=== PATIENT | female | born 1980 | race Caucasian/White ===

== ENCOUNTER → 2022-01-27 08:16 | Outpatient (BNVA) | payer OTHER, SELFPAY | PROVIDERS: PCP Physician Assistant Medical; Visit Provider Surgery | DX: E66.01 Morbid (severe) obesity due to excess calories (principal) ==

== ENCOUNTER 2022-02-02 06:01 | Outpatient (REF) | payer OTHER, SELFPAY ==
--- NOTE | ~2022-02-02 | XR_ITS ---
EXAMINATION: XR CHEST CLINICAL INFORMATION: Morbid obesity. COMPARISON: None TECHNIQUE: 2 views of the chest were obtained. FINDINGS: No significant abnormality is noted involving the heart, lungs, mediastinum, bony thorax or soft tissues. XR/XR chest 2V IMPRESSION: Unremarkable examination.
--- NOTE | 2022-02-02 06:20 | ECG_ITS ---
Test Reason : E66.01 Blood Pressure : / mmHG Vent. Rate : 073 BPM Atrial Rate : 073 BPM P-R Int : 148 ms QRS Dur : 086 ms QT Int : 430 ms P-R-T Axes : -07 -23 012 degrees QTc Int : 473 ms Normal sinus rhythm Normal ECG No previous ECGs available Referred By: Dimitrios Neely Electronically Signed By:LUCIANA ATKINSON MD
[2022-02-02 06:21] LABS: MANUAL DIFF FLAG NO
[2022-02-02 07:27] LABS: Basophils Percent Auto 0.4 % (0-2); Eosinophils Absolute Auto 0.3 X10*3/uL (0.0-0.4); Eosinophils Percent Auto 4.1 % (0-4); Hematocrit 44.7 % (37.0-47.0); Hemoglobin 14.5 g/dl (12.0-16.0); Imm Gran Abs Auto 0.02 X10*3/uL (0.00-0.03); Imm Gran Pct Auto 0.3 % (0.0-0.4); Lymphocytes Absolute Auto 2.8 X10*3/uL (1.2-4.9); Lymphocytes Percent Auto 39.8 % (20-40); Mean Corpuscular HGB Conc 32.4 g/dl (31.0-35.0); Mean Corpuscular Hemoglobin 27.7 pg (27.0-33.0); Mean Corpuscular Volume 85.5 fL (80.0-98.0); Mean Platelet Volume 10.8 fL (9.4-12.3); Monocytes Absolute Auto 0.5 X10*3/uL (0.1-1.2); Monocytes Percent Auto 7.2 % (2-11); Neutrophils Absolute Auto 3.4 x10*3/uL (2.0-8.3); Neutrophils Percent Auto 48.2 % (45-73); Platelet Count 244 X10*3/uL (160-400); Red Blood Count 5.23 X10*6/uL (4.20-5.50); Red Cell Distribution Width 12.6 % (11.0-16.0); White Blood Count 7.1 X10*3/uL (4.8-10.8)
[2022-02-02 07:58] LABS: Estimated Average Glucose 100 mg/dL; Hemoglobin A1c % 5.1 %
[2022-02-02 08:09] LABS: Alanine Aminotransferase 31 U/L (0-31); Albumin Level 4.4 g/dL (3.5-5.0); Alkaline Phosphatase 69 U/L (39-117); Anion Gap 11 (12-20); Aspartate Amino Transferase 21 U/L (5-31); Bilirubin Total 0.6 mg/dL (0.0-1.0); Blood Urea Nitrogen 12 mg/dL (9-16); C Reactive Protein 0.21 mg/dL (< or = 0.50); Calcium 9.3 mg/dL (8.4-10.2); Carbon Dioxide 26 mmol/L (22-29); Chloride 106 mmol/L (96-108); Cholesterol 230 mg/dL; Estimated Glomerular Filt Rate > 60; Ferritin 106 ng/mL (10-250); Glucose Random 93 mg/dL (60-115); HDL Cholesterol 48 mg/dL; Insulin 14 uU/mL (2-29); Iron 129 mcg/dL (30-160); LDL Cholesterol Calculated 142 mg/dl; Percent Iron Saturation 45 % (15-50); Potassium 4.4 mmol/L (3.3-5.1); Sodium 139 mmol/L (135-145); TSH reflex Free T4 1.94 uIU/mL (0.32-4.0); Total Iron Binding Capacity 287 mcg/dL (228-428); Total Protein 7.1 g/dL (6.5-8.0); Triglycerides 203 mg/dL; Unsaturated Iron Binding 158 ug/dL; Vitamin D 25-OH Total 28.9 ng/mL (>30)
[2022-02-02 08:26] LABS: Folate 17.7 ng/mL (> or = 4.0); Vitamin B12 478 pg/mL (200-900)
[2022-02-05 13:09] LABS: Calcium (PTHI) 9.4 mg/dL (8.6-10.2); PTHI 64 pg/mL (16-77)
[2022-02-06 17:39] LABS: Zinc 77 mcg/dL (60-130)
[2022-02-07 15:44] LABS: Vitamin B1 9 nmol/L (8-30)
[2022-02-08 17:03] LABS: Vitamin A 53 mcg/dL (38-98)
== END 2022-02-02 06:02 | disposition home or self-care (01) ==
LOC: HO.XRAY 06:01
PROVIDERS: PCP Physician Assistant Medical; Visit Provider Surgery
DX: E66.01 Morbid (severe) obesity due to excess calories (principal); E78.5 Hyperlipidemia, unspecified; R73.03 Prediabetes
CPT/HCPCS: 36415; 71046; 80053; 80061; 82306; 82607; 82728; 82746; 83036; 83525; 83540; 83970; 84425; 84443; 84590; 84630; 85025; 86140; 93005

== ENCOUNTER → 2022-02-03 09:08 | Outpatient (BNVA) | payer OTHER, SELFPAY | PROVIDERS: PCP Physician Assistant Medical; Visit Provider Physician Assistant Surgical | DX: Z13.89 Encounter for screening for other disorder (principal) ==

== ENCOUNTER 2022-02-03 13:31 | Outpatient (REF) | payer OTHER, SELFPAY ==
[2022-02-03 15:21] LABS: H Pylori Breath Test Negative (Negative)
== END 2022-02-03 13:32 | disposition home or self-care (01) ==
LOC: HO.LNP 13:31
PROVIDERS: Visit Provider Surgery
DX: E66.01 Morbid (severe) obesity due to excess calories (principal); E78.5 Hyperlipidemia, unspecified; R73.03 Prediabetes
CPT/HCPCS: 83013

== ENCOUNTER → 2022-02-17 08:08 | Outpatient (BNVA) | payer OTHER, SELFPAY | PROVIDERS: PCP Physician Assistant Medical; Visit Provider Physician Assistant Surgical | DX: Z13.89 Encounter for screening for other disorder (principal) ==

== ENCOUNTER → 2022-02-20 08:15 | Outpatient (BNVA) | payer OTHER, SELFPAY | PROVIDERS: PCP Physician Assistant Medical; Visit Provider Surgery | DX: E66.01 Morbid (severe) obesity due to excess calories (principal) ==

== ENCOUNTER → 2022-02-23 09:45 | Outpatient (BNVA) | payer OTHER, SELFPAY | PROVIDERS: PCP Physician Assistant Medical; Visit Provider Dietitian, Registered | DX: E66.01 Morbid (severe) obesity due to excess calories (principal) | CPT/HCPCS: 97802 ==

== ENCOUNTER → 2022-02-28 12:30 | Outpatient (BNVA) | payer OTHER, SELFPAY | PROVIDERS: PCP Physician Assistant Medical; Visit Provider Counselor Mental Health | DX: F33.0 Major depressive disorder, recurrent, mild (principal); E66.01 Morbid (severe) obesity due to excess calories | CPT/HCPCS: 90791 ==

== ENCOUNTER → 2022-03-20 08:42 | Outpatient (BNVA) | payer OTHER, SELFPAY | PROVIDERS: PCP Physician Assistant Medical; Visit Provider Surgery | DX: Z13.89 Encounter for screening for other disorder (principal) ==

== ENCOUNTER 2022-03-23 08:04 | Outpatient (REF) | payer OTHER, SELFPAY ==
--- NOTE | ~2022-03-23 | FL_ITS ---
EXAMINATION: XR FLUOROSCOPY UPPER GI WITH AIR CLINICAL INFORMATION: Morbid obesity COMPARISON: None TECHNIQUE: Air-contrast upper GI examination FINDINGS: There is normal apposition of the vocal cords while saying E. There is normal elevation of the soft palate while saying candy. Patient swallowed thin and thick barium and half-inch diameter barium tablet without difficulty. No nasopharyngeal reflux or tracheal aspiration identified. There is normal esophageal motility without evidence of persistent stricture or ulcerations/erosions. No hiatal hernia was identified. No gastroesophageal reflux was elicited during the study including with water siphon test. The stomach demonstrated normal distensibility without evidence of abnormal mass or ulceration. There was no delay in gastric emptying. A duodenal diverticulum is seen off the third portion of the duodenum. FLUOROSCOPY TIME: 1.8 minutes DOSE AREA PRODUCT: 24.475 Gy-cm2 FL/FL upper GI w air IMPRESSION: Normal air-contrast upper GI examination. Duodenal diverticulum.
--- NOTE | ~2022-03-23 | US_ITS ---
EXAMINATION: US COMPLETE ABDOMEN WITH LIVER ELASTOGRAPHY CLINICAL INFORMATION: Morbid obesity. COMPARISON: None. TECHNIQUE: Real-time imaging of the abdominal viscera. Noninvasive ultrasound liver fibrosis assessment is performed using [employer] point quantification shear wave elastography (2D-SWE) with a C5-2 MHz transducer. Multiple elastography samples are obtained. FINDINGS: PANCREAS: Limited. The visualized pancreatic head and body are normal in appearance. The remainder of the pancreas is obscured from visualization by the overlying bowel gas. ABDOMINAL AORTA: The proximal, middle, and distal aortic segments are normal in caliber. INFERIOR VENA CAVA: Visualized portions are normal. LIVER: The liver demonstrates normal size, contour and increased echogenicity, with pericholecystic sparing. No focal lesion or intrahepatic biliary duct dilatation. The right lobe measures 17.5 cm in length. The left lobe measures 12.4 cm in length. Portal flow is towards the liver (hepatopetal). Shear wave liver elastography median stiffness is 1.78 m/s (reference: normal median stiffness is 1.3 m/s or less). IQR/median stiffness to assess sampling precision is 0.0 (reference: good quality data set is IQR/median stiffness of 0.15 or less). GALLBLADDER: Small layering gallstones are seen, without sludge, polyps, wall thickening or pericholecystic fluid. COMMON BILE DUCT: Normal in caliber measuring 0.4 cm in diameter. RIGHT KIDNEY: At the upper pole, a 2.1 cm in maximal diameter anechoic, simple cyst is seen.. No hydronephrosis. No renal calculi or focal parenchymal lesions. The kidney measures 11.9 cm in maximum dimension. LEFT KIDNEY: Normal. No hydronephrosis. No renal calculi or focal parenchymal lesions. The kidney measures 11.4 cm in maximum dimension. SPLEEN: Normal. The spleen measures 12.3 cm in maximum dimension. FREE FLUID: None. US/US abdomen comp w elastography IMPRESSION: 1. There is generalized increase in hepatic echotexture, consistent with fatty infiltration or hepatocellular disease. Please correlate clinically. Characteristic pericholecystic sparing favors fatty infiltration. No focal hepatic mass or intrahepatic biliary dilatation is seen. 2. Liver elastography: Measurements are suggestive of compensated advanced chronic liver disease but need further test for confirmation. 3. There is cholelithiasis, without cholecystitis or choledocholithiasis. 4. A benign, simple right renal cyst is seen, with no imaging follow-up is recommended. 5. Technically limited ultrasound examination of the pancreatic tail. REFERENCE: Society of Radiologists in Ultrasound Liver Stiffness Thresholds (2020): LIVER STIFFNESS THRESHOLDS: *Liver Stiffness equal or less than 1.3 m/s: High probability of being normal. *Liver Stiffness less than 1.7 m/s: In the absence of other known clinical signs, rules out compensated advanced chronic liver disease. *Liver Stiffness 1.7-2.1 m/s: Suggestive of compensated advanced chronic liver disease but need further test for confirmation. *Liver Stiffness over 2.1 m/s: Rules in compensated advanced chronic liver disease. *Liver Stiffness over 2.4 m/s: Suggestive of clinically significant portal hypertension. QUALITY OF DATA SET: *IQR/Median value equal or less than 0.15 implies a quality data set. *IQR/Median value over 0.15 implies a poor quality data set. SIGNIFICANT CHANGE FROM PRIOR EXAM: Significant change if liver stiffness measurement is 10% or greater from prior exam. OTHER CONSIDERATIONS: The stage of liver fibrosis may be overestimated in the setting of acute hepatitis, liver inflammation, elevated liver function tests, hepatic vascular congestion, obstructive cholestasis, non-fasting state, and infiltrative diseases such as amyloidosis and lymphoma. In some patients with NAFLD, the liver stiffness thresholds for compensated advanced chronic liver disease may be lower. In causes other than viral hepatitis and NAFLD, liver stiffness thresholds are not well established.
== END 2022-03-23 08:05 | disposition home or self-care (01) ==
LOC: HO.US 08:04
PROVIDERS: Visit Provider Surgery
DX: Z01.818 Encounter for other preprocedural examination (principal); E66.01 Morbid (severe) obesity due to excess calories; E78.5 Hyperlipidemia, unspecified; R73.03 Prediabetes; K21.9 Gastro-esophageal reflux disease without esophagitis
CPT/HCPCS: 74246; 76705; 76981

== ENCOUNTER → 2022-03-24 09:45 | Outpatient (BNVA) | payer OTHER, SELFPAY | PROVIDERS: PCP Physician Assistant Medical; Visit Provider Counselor Mental Health | DX: F33.0 Major depressive disorder, recurrent, mild (principal); E66.01 Morbid (severe) obesity due to excess calories | CPT/HCPCS: 90832 ==

== ENCOUNTER → 2022-04-03 10:15 | Outpatient (BNVA) | payer OTHER, SELFPAY | PROVIDERS: PCP Physician Assistant Medical; Visit Provider Counselor Mental Health | DX: F33.0 Major depressive disorder, recurrent, mild (principal); E66.01 Morbid (severe) obesity due to excess calories | CPT/HCPCS: 90834 ==

== ENCOUNTER → 2022-04-10 08:00 | Outpatient (BNVA) | payer OTHER, SELFPAY | PROVIDERS: PCP Physician Assistant Medical; Visit Provider Surgery | DX: Z13.89 Encounter for screening for other disorder (principal) ==

== ENCOUNTER → 2022-04-13 10:30 | Outpatient (BNVA) | payer OTHER, SELFPAY | PROVIDERS: PCP Physician Assistant Medical; Visit Provider Counselor Mental Health | DX: F33.0 Major depressive disorder, recurrent, mild (principal); E66.01 Morbid (severe) obesity due to excess calories | CPT/HCPCS: 90834 ==

== ENCOUNTER → 2022-04-21 08:21 | Outpatient (BNVA) | payer OTHER, SELFPAY | PROVIDERS: PCP Physician Assistant Medical; Visit Provider Surgery | DX: Z13.89 Encounter for screening for other disorder (principal) ==

== ENCOUNTER → 2022-04-24 12:58 | Outpatient (BNVA) | payer OTHER, SELFPAY | PROVIDERS: PCP Physician Assistant Medical; Visit Provider Surgery | DX: Z13.89 Encounter for screening for other disorder (principal) ==

== ENCOUNTER 2022-04-27 08:01 | Inpatient (IN) | payer OTHER, SELFPAY ==
[2022-04-21 08:19] LABS: MANUAL DIFF FLAG NO
[2022-04-21 08:55] LABS: Basophils Percent Auto 0.5 % (0-2); Eosinophils Absolute Auto 0.2 X10*3/uL (0.0-0.4); Eosinophils Percent Auto 3.8 % (0-4); Hematocrit 45.1 % (37.0-47.0); Hemoglobin 14.9 g/dl (12.0-16.0); Imm Gran Abs Auto 0.01 X10*3/uL (0.00-0.03); Imm Gran Pct Auto 0.2 % (0.0-0.4); Lymphocytes Absolute Auto 2.2 X10*3/uL (1.2-4.9); Lymphocytes Percent Auto 39.9 % (20-40); Mean Corpuscular Hemoglobin 28.2 pg (27.0-33.0); Mean Corpuscular Volume 85.3 fL (80.0-98.0); Mean Platelet Volume 10.7 fL (9.4-12.3); Monocytes Absolute Auto 0.5 X10*3/uL (0.1-1.2); Monocytes Percent Auto 8.2 % (2-11); Neutrophils Absolute Auto 2.7 x10*3/uL (2.0-8.3); Neutrophils Percent Auto 47.4 % (45-73); Platelet Count 209 X10*3/uL (160-400); Red Blood Count 5.29 X10*6/uL (4.20-5.50); Red Cell Distribution Width 12.8 % (11.0-16.0); White Blood Count 5.6 X10*3/uL (4.8-10.8)
[2022-04-21 09:00] LABS: Prothrombin Time 11.7 SEC (10.0-13.1)
[2022-04-21 09:03] LABS: Partial Thromboplastin Time 34.3 SEC (26.0-36.4)
[2022-04-21 09:07] LABS: Estimated Average Glucose 100 mg/dL; Hemoglobin A1c % 5.1 %
[2022-04-21 09:37] LABS: Alanine Aminotransferase 20 U/L (0-31); Albumin Level 4.5 g/dL (3.5-5.0); Alkaline Phosphatase 71 U/L (39-117); Anion Gap 11 (12-20); Aspartate Amino Transferase 21 U/L (5-31); Bilirubin Total 1.1 mg/dL (0.0-1.0); Blood Urea Nitrogen 11 mg/dL (9-16); C Reactive Protein 0.25 mg/dL (< or = 0.50); Calcium 9.3 mg/dL (8.4-10.2); Carbon Dioxide 29 mmol/L (22-29); Chloride 103 mmol/L (96-108); Cholesterol 195 mg/dL; Estimated Glomerular Filt Rate > 60; Glucose Random 87 mg/dL (60-115); HDL Cholesterol 47 mg/dL; LDL Cholesterol Calculated 126 mg/dl; Potassium 4.2 mmol/L (3.3-5.1); Sodium 139 mmol/L (135-145); Total Protein 7.2 g/dL (6.5-8.0); Triglycerides 111 mg/dL
[2022-04-21 09:52] LABS: Insulin 9 uU/mL (2-29); TSH reflex Free T4 1.12 uIU/mL (0.32-4.0)
--- NOTE | 2022-04-21 18:26 | P.HPSUR_ITS ---
Pre-Procedural Eval Section A Date of Service: 04/21/22 The patient is an INPATIENT: Yes The History & Physical has been completed within 30 days and I have reviewed it.: Yes Section B Chief Complaint: Morbid (severe) obesity due to excess calories Relevant Family History (Specify if Yes): No Relevant Social History: None Present Medications: None Medical History: No relevant PMH History of Previous Operations: No relevant previous surgery Allergies: Allergies Allergy/AdvReac Type Severity Reaction Status Date / Time Azithromycin Allergy Mild HIVES Uncoded 04/20/22 21:12 Review of Systems Sugical H&P ROS: Negative: Constitution, Cardiovascular, Respiratory, Neurological, Psychiatric, Hem-Onc, Allergic/Immunologic, Gastrointestinal, Genitourinary, Musculoskeletal, Integumentary, Endocrine and Eyes/Ears/ Nose/Throat Exam Surgical H&P Exam: Normal: HEENT, Normal: Heart, Normal: Lungs, Normal: Extremities, Normal: Abdomen, Normal: Skin and Normal: Neurological Plan Diagnosis/Plan: Unchanged I have reviewed the history and physical and performed a pertinent physical examination on my patient. No changes have occurred unless specified. Time Spent With Patient Time: Total time managing care of this patient today ____ minutes.
[2022-04-25 10:35] VITALS: BMI 44.6
--- NOTE | 2022-04-26 13:05 | P.CONAN_ITS ---
Documented by User: Jenna Whipple NP 04/26/22 13:06 HPI - Anesthesia Eval Consult details Narrative: 41yo F for Gastrectomy Sleeve egd ,possible diaphragmatic herina,poss ventral hernia,possible open PMFSH Active Problems Active Problems: All Active Problems (Updated 02/28/22 @ 13:39 by Pamela Noriega) Major depressive disorder, recurrent, mild (Acute) Vitamin D deficiency (Acute) PCOS (polycystic ovarian syndrome) (Acute) Hyperlipidemia (Acute) Prediabetes (Acute) Depression (Acute) Morbid obesity (Acute) Past Medical History Medical History Depression Hyperlipidemia Morbid obesity PCOS (polycystic ovarian syndrome) Prediabetes Family History Family History Mother Diabetes Heart problem Father No problems noted. Sister Stroke Sister No problems noted. Son No problems noted. Son No problems noted. 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 If so, by whom?: No Are you DNR?: No Advance Directives: No Advance Directives Information Provided: Yes (Info Mailed w/ pre-op instructio ns) Advance Directives on File: No Recently lost weight without trying: No How much weight loss: 24-33 pounds Eating poorly because of decreased appetite: No Nutrition screen score: 3 Nutrition Risks: No Nutritional Risk Patient : No FDLMP: 04/07/22 Poor oral hygiene: No Meds Allergies Allergy/AdvReac Type Severity Reaction Status Date / Time Penicillins Allergy Hives as Verified 04/25/22 10:31 infant Azithromycin Allergy Mild HIVES Uncoded 04/25/22 10:31 Home Medications Medication Instructions Recorded Confirmed Last Taken Type multivitamin 1 tab PO DAILY 01/19/22 04/27/22 04/26/22 History sertraline 25 mg tablet 25 mg PO DAILY 01/19/22 04/27/22 04/26/22 History Exam Exam Date and Time: April 26, 2022 1305 Height,Weight and Vital Signs: Height 5 ft 6 in Weight 125.418 kg Pertinent Lab Results Pertinent Lab Results: Laboratory Tests 04/21/22 04/21/22 04/21/22 08:15 08:18 08:18 WBC 5.6 RBC 5.29 Hgb 14.9 Hct 45.1 MCV 85.3 MCH 28.2 MCHC 33.0 RDW 12.8 Plt Count 209 MPV 10.7 Immature Gran % (Auto) 0.2 Neut % (Auto) 47.4 Lymph % (Auto) 39.9 [place] % (Auto) 8.2 Eos % (Auto) 3.8 Baso % (Auto) 0.5 Lymph # (Auto) 2.2 [place] # (Auto) 0.5 Eos # (Auto) 0.2 Baso # (Auto) 0.0 Abs Immat Gran (auto) 0.01 Absolute Neuts (auto) 2.7 Absolute Nucleated RBC 0.000 Nucleated RBC % (auto) 0.0 PT 11.7 INR 1.0 APTT 34.3 Sodium Potassium Chloride Carbon Dioxide Anion Gap BUN Creatinine Estim Creat Clear Calc Estimated GFR Random Glucose Estimat Average Glucose Hemoglobin A1c % Insulin Level Calcium Total Bilirubin AST ALT Alkaline Phosphatase C-Reactive Protein Total Protein Albumin Triglycerides Cholesterol LDL Cholesterol, Calc HDL Cholesterol TSH Blood Type B Positive Antibody Screen NEGATIVE 04/21/22 04/21/22 08:18 08:18 WBC RBC Hgb Hct MCV MCH MCHC RDW Plt Count MPV Immature Gran % (Auto) Neut % (Auto) Lymph % (Auto) [place] % (Auto) Eos % (Auto) Baso % (Auto) Lymph # (Auto) [place] # (Auto) Eos # (Auto) Baso # (Auto) Abs Immat Gran (auto) Absolute Neuts (auto) Absolute Nucleated RBC Nucleated RBC % (auto) PT INR APTT Sodium 139 Potassium 4.2 Chloride 103 Carbon Dioxide 29 Anion Gap 11 L BUN 11 Creatinine 0.77 Estim Creat Clear Calc TNP Estimated GFR > 60 Random Glucose 87 Estimat Average Glucose 100 Hemoglobin A1c % 5.1 Insulin Level 9 Calcium 9.3 Total Bilirubin 1.1 H AST 21 ALT 20 Alkaline Phosphatase 71 C-Reactive Protein 0.25 Total Protein 7.2 Albumin 4.5 Triglycerides 111 Cholesterol 195 LDL Cholesterol, Calc 126 HDL Cholesterol 47 TSH 1.12 Blood Type Antibody Screen Narrative Narrative: EKG 01/2022 Vent. Rate : 073 BPM ? ? Atrial Rate : 073 BPM ?? P-R Int : 148 ms? QRS Dur : 086 ms ? ? QT Int : 430 ms ? ? ? P-R-T Axes : - 012 degrees ?? QTc Int : 473 ms ? Normal sinus rhythm Normal ECG No previous ECGs available Assessment and Plan Assessment Anesthesia Assessment: Chart Reviewed Documented by User: Precious Kat MD 04/27/22 10:52 HPI - Anesthesia Eval Consult details Narrative: 41yo F for EGD, Laparoscopic Sleeve Gastrectomy, possible diaphragmatic hernia repair, possible ventral hernia repair, possible open PMFSH Active Problems Active Problems: All Active Problems (Updated 04/27/22 @ 09:30 by Precious Kat MD) Major depressive disorder, recurrent, mild (Acute) Vitamin D deficiency (Acute) PCOS (polycystic ovarian syndrome) (Acute) Hyperlipidemia (Acute) Prediabetes (Acute) Depression (Acute) Morbid obesity (Acute) Denies JOVANA. Symptoms in the past but not since tonsillectomy surgery Past Medical History Medical History Depression Hyperlipidemia Morbid obesity PCOS (polycystic ovarian syndrome) Prediabetes Family History Family History Mother Diabetes Heart problem Father No problems noted. Sister Stroke Sister No problems noted. Son No problems noted. Son No problems noted. 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 If so, by whom?: No Are you DNR?: No Advance Directives: No Advance Directives Information Provided: Yes (Info Mailed w/ pre-op instructions) Advance Directives on File: No Recently lost weight without trying: No How much weight loss: 24-33 pounds Eating poorly because of decreased appetite: No Nutrition screen score: 3 Nutrition Risks: No Nutritional Risk Patient : No FDLMP: 04/07/22 Poor oral hygiene: No Meds Allergies Allergy/AdvReac Type Severity Reaction Status Date / Time Penicillins Allergy Hives as Verified 04/25/22 10:31 infant Azithromycin Allergy Mild HIVES Uncoded 04/25/22 10:31 Home Medications Medication Instructions Recorded Confirmed Last Taken Type multivitamin 1 tab PO DAILY 01/19/22 04/27/22 04/26/22 History sertraline 25 mg tablet 25 mg PO DAILY 01/19/22 04/27/22 04/26/22 History Exam Height,Weight and Vital Signs: Height 5 ft 6 in Weight 125.418 kg Vital Signs Temp Pulse Resp BP Pulse Ox O2 Del Method 04/27/22 08:16 97.1 F 73 18 132/86 99 Room Air Pertinent Lab Results Pertinent Lab Results: Laboratory Tests 04/21/22 04/21/22 04/21/22 08:15 08:18 08:18 WBC 5.6 RBC 5.29 Hgb 14.9 Hct 45.1 MCV 85.3 MCH 28.2 MCHC 33.0 RDW 12.8 Plt Count 209 MPV 10.7 Immature Gran % (Auto) 0.2 Neut % (Auto) 47.4 Lymph % (Auto) 39.9 [place] % (Auto) 8.2 Eos % (Auto) 3.8 Baso % (Auto) 0.5 Lymph # (Auto) 2.2 [place] # (Auto) 0.5 Eos # (Auto) 0.2 Baso # (Auto) 0.0 Abs Immat Gran (auto) 0.01 Absolute Neuts (auto) 2.7 Absolute Nucleated RBC 0.000 Nucleated RBC % (auto) 0.0 PT 11.7 INR 1.0 APTT 34.3 Sodium Potassium Chloride Carbon Dioxide Anion Gap BUN Creatinine Estim Creat Clear Calc Estimated GFR Random Glucose Estimat Average Glucose Hemoglobin A1c % Insulin Level Calcium Total Bilirubin AST ALT Alkaline Phosphatase C-Reactive Protein Total Protein Albumin Triglycerides Cholesterol LDL Cholesterol, Calc HDL Cholesterol TSH Blood Type B Positive Antibody Screen NEGATIVE 04/21/22 04/21/22 08:18 08:18 WBC RBC Hgb Hct MCV MCH MCHC RDW Plt Count MPV Immature Gran % (Auto) Neut % (Auto) Lymph % (Auto) [place] % (Auto) Eos % (Auto) Baso % (Auto) Lymph # (Auto) [place] # (Auto) Eos # (Auto) Baso # (Auto) Abs Immat Gran (auto) Absolute Neuts (auto) Absolute Nucleated RBC Nucleated RBC % (auto) PT INR APTT Sodium 139 Potassium 4.2 Chloride 103 Carbon Dioxide 29 Anion Gap 11 L BUN 11 Creatinine 0.77 Estim Creat Clear Calc TNP Estimated GFR > 60 Random Glucose 87 Estimat Average Glucose 100 Hemoglobin A1c % 5.1 Insulin Level 9 Calcium 9.3 Total Bilirubin 1.1 H AST 21 ALT 20 Alkaline Phosphatase 71 C-Reactive Protein 0.25 Total Protein 7.2 Albumin 4.5 Triglycerides 111 Cholesterol 195 LDL Cholesterol, Calc 126 HDL Cholesterol 47 TSH 1.12 Blood Type Antibody Screen Laboratory Results - last 24 hr 04/26/22 04/27/22 15:40 08:06 Urine Test NEGATIVE COVID-19 (RAN) Negative COVID-19 Clin Com See Note Airway Mallampati Class: II TM Dist: >3cm Neck ROM: Full Loose/Missing/Broken Teeth: Yes (Chipped molar. Denies loose or missing teeth) Heart: RRR Lungs: CTAB Assessment and Plan Assessment Anesthesia Assessment: Anesthesia Plan Discussed Final Anesthetic Review Family History of Problems with Anesthesia: No History of Problems with Anesthesia: No NPO: Yes ASA Class: III Final Preanesthetic Review: No Changes in Pt Med Stat, Meds/Allgs Chart Reviewed, Consent Obtained/Reviewed and Anes Risks/Benef Reviewed Patient Risk: Intermediate Procedure Risk: Intermediate Assessment/Block/Sedation in SS: Assess/Block/Sedation-SS Anesthetic Plan Anesthetic Plan: GA Disposition: Standard PACU and Inp. Admit - Standard Bed
[2022-04-26 16:19] LABS: COVID-19 Test Negative (Negative); IDNOW Serial# BCCEAD1C
[2022-04-27] VITALS (13 sets, daily range): BP systolic 90–162; BP diastolic 40–93; PULSE 51–76; RESP 12–18; TEMP 36.1–37.4; O2SAT 92–99
--- NOTE | 2022-04-27 08:13 | PHA.MEDREC ---
Pharmacy Consult ? Medication Reconciliation Pharmacy has completed the medication reconciliation. Reviewed med rec done by nursing
[2022-04-27 08:40] LABS: UPreg QC Valid YES; Urine Pregnancy NEGATIVE (NEGATIVE)
[2022-04-27] MEDS: Lactated Ringers 1,000 ML 999 ML IV (08:42)
--- NOTE | 2022-04-27 10:02 | PM.OP ---
Brief Operative Note Date of Service: 04/27/22 Pre-op diagnosis: Morbid obesity with comorbidities (see below) Post-op diagnosis: same Procedure: INITIAL PATIENT BMI ON PRESENTATION AT OUR OFFICE: 49.1 kg/m2 LAST BMI BEFORE SURGERY: 45 kg/m2 COMORBIDITIES: depression, hyperlipidemia, prediabetes, PCOS, liver steatosis, liver fibrosis, cholelithiasis ?The patient presented to the Weight Management Program with significant obesity that was negatively impacting the patient's comorbidities as listed above.? The program is a phased program with a special focus on preoperative medical weight management to promote substantial weight loss and prepare the patients for the second phase of the program: bariatric surgery. The patient participated in an intensive weekly lifestyle ?intervention and exercise program during which the patient ?has lost between the initial office visit and the last preoperative visit 27.4 lbs, or 9.01% of initial actual body weight. It was deemed appropriate for the patient to now have bariatric surgery. In light of the current Covid-19 pandemic and the well documented strong association of obesity and increased risk of worse outcomes if infected with Covid-19 (REFERENCES:https://pubmed.ncbi.nlm.nih.gov/81282795/,?https://pubmed.ncbi.nlm.nih.gov/53315790/), any delay in undergoing bariatric surgery may lead to the patient's worsening health condition and increased?risk of more severe Covid-19 disease if infected. In addition a recent?study from [facility] published in [facility] on 01/31/2021 ([email or web address]) found that, among patients with obesity, substantial weight loss achieved with surgery was associated with improved outcomes of COVID-19 infection. The findings suggest that obesity can be a modifiable risk factor for the severity of COVID-19 infection. In addition, the patient met the BMI-criteria for bariatric surgery based on the BMI on initial presentation. The patient should not be penalized for achieving such weight loss because ?it is not sustainable long-term without surgical intervention and it was achieved in preparation for bariatric surgery ?under my direction and based on my published research ([email or web address]).[email or web address] and?[email or web address].soard.org/article/[email or web address])20530-X/pdf) ?that a 10% preoperative weight loss improves long-term weight loss after surgery and reduces perioperative complications.? Insurance carriers such as [facility] have endorsed my recommendations ?and have included in their policies criteria to include a 10% preoperative weight loss requirement. PROCEDURE: Esophago-gastroscopy, laparoscopic sleeve gastrectomy and laparoscopic gastropexy INDICATIONS: This is a 41 year-old female who was electively scheduled for laparoscopic, possibly open sleeve gastrectomy. The risks and complications of the procedure were discussed with the patient in advance, particularly the possibility of ; pulmonary embolism; staple line leak; bleeding; GERD; cardiac, pulmonary, or renal complications; as well as long-term problems such as insufficient weight loss, vitamin deficiency, strictures, or ulcers. The patient understood all the risks, and was in agreement to proceed with surgery. DESCRIPTION OF PROCEDURE: After informed consent was obtained from the patient, the patient was given preoperative antibiotics, and was transferred to the operating room. After successful induction of general anesthesia, pneumatic compression devices were placed on both lower extremities. An upper endoscopy was performed next. The oropharynx and esophagus appeared to be within normal limits. There was no diaphragmatic hernia present consistent with the findings of the preoperative upper GI. The stomach was entered. Then after all fluid and air were suctioned and the stomach was fully decompressed, the scope was withdrawn and secured in the mid esophagus. The patient was then prepped and draped in the usual sterile manner, and abdominal access was established at the right upper quadrant with the Mari technique. A 12 mm blunt port was inserted, and the abdomen was insufflated with CO2 to a pressure of 15 mmHg. Under direct visualization, additional ports were placed, specifically two 5 mm Versi-step ports to the left upper quadrant, and a 5 mm Versi-Step port to the right upper quadrant. 1% lidocaine plain was used to infiltrate all port sites as well as all fascia defects. Following that, the patient was placed in a steep reverse Trendelenburg position. An additional 5 mm port was placed to the right flank for the Mediflex retractor that was used to retract the left lobe of the liver. The gastro-esophageal fat pad was opened with the ultrasonic device (Thunderbeat, Olympus) and the anterior esophagus and hiatus were exposed. The angle of His was opened with the ultrasonic device the fundus of the stomach from any diaphragmatic and splenic attachments. I then opened the gastrocolic ligament between the transverse colon and the greater curvature of the stomach with the ultrasonic device to enter the lesser sac and facilitate the ligation of the short gastric vessels. I started at a mid-point along the greater curvature and using the Thunderbeat, all short gastric vessels were divided all the way to the angle of His until the left willi was completely dissected at its entirety. I then divided the gastro-colic ligament distally to a distance of about 3-4 cm proximal to the pylorus. The stomach was then divided transversely with one Endo AIDAN-45 purple, one AIDAN-45 orange loads and four AIDAN-60 articulating orange loads using the AEON stapler and loads. Every effort was made that the gastric sleeve had a tubular shape and an even caliber throughout. Once the sleeve resection was completed, the staple line of the gastric sleeve was reinforced with Hemoclips. The resected stomach was retrieved without difficulty from the Mari port. A gastropexy was then performed in order to prevent postoperative GERD and partial gastric volvulus. Several interrupted 2.0 Surgidac sutures were placed between the sleeve's staple line and the previously divided greater omentum and gastro-colic ligament using the Endo-Stitch device. ?An upper endoscopy was performed. There was no narrowing at the GE junction. The scope was easily advanced all the way to the pylorus which was clearly visualized. There was no narrowing anywhere and the sleeve's caliber was even throughout. The sleeve's staple line was inspected and there was no evidence of ischemia, bleeding or dehiscence. At that point the gastroscope was withdrawn from the patient?s mouth while we were decompressing the bowel and the stomach from any remaining air. I looked into the lesser sac to see how the sleeve was situating and it was situating well. There was no bleeding from the staple line, spleen, or short gastric vessels. The Mediflex retractor was removed, and the undersurface of the liver was inspected and there was no bleeding. The patient was placed in supine position. I closed the fascial defect of the 12 mm port site with a figure of eight #1 Polysorb suture. Then 30cc Ropivacaine plain with 10 mg of Dexamethasone were used to infiltrate the fascial closure as well as all skin incisions. A total of 7ml Zynrelef was applied in the Mari wound. At this point, the abdomen was deflated, all ports were removed under direct vision, and no bleeding was noted from any of the port sites. The skin incisions were irrigated with saline and were closed with 4-0 absorbable monofilament sutures. Steri-Strips and OpSites were used to cover all incisions. The patient was extubated and was transferred in stable condition to the recovery room for further care. I was present and performed all reyes parts of the procedure. Ms. Lund was the catalog library assistant. There were no residents to assist with this case. Roman Neely MD, PhD, FACS Surgeon: Dimitrios Neely MD Anesthesia: GETA, local and other (TAP block and 7ml Zynrelef) Was an Marine Designer used for this Procedure?: No Marine Designer: Sindy Lund Estimated blood loss (mL): 10 IV fluids (mL): 2,000 Urine output (mL): 0 (No Faust to record output) Pathology: other (Stomach) Condition: stable Disposition: PACU
--- NOTE | 2022-04-27 10:05 | PM.PNGS ---
Subjective Subjective Date of Service: 04/28/22 Interval history: Feels well. Mild incisional pain. She is tolerating phase 1 bariatric diet Physical Exam Vital Signs: Vital Signs: Last Vital Signs Temp 97.1 F 04/27/22 08:16 Pulse 73 04/27/22 08:16 Resp 18 04/27/22 08:16 BP 132/86 04/27/22 08:16 Pulse Ox 99 04/27/22 08:16 O2 Del Method Room Air 04/27/22 08:16 BMI result Body Mass Index 44.6 GI: Inspection: Yes normal to inspection, Yes incision (clean, dry and intact) and Yes obesity Palpation (GI): Soft to palpation Extrem: Right lower extremity: normal to inspection (no calf tenderness) Left lower extremity: normal to inspection (no calf tenderness) Objective Data Active Medications Lactated Ringer's (Lr) 1,000 mls @ 100 mls/hr IVCONT .Q10H YOHAN Labs 04/21/22 08:18 04/21/22 08:18 Labs: Laboratory Results - last 24 hr 04/26/22 04/27/22 15:40 08:06 Urine Test NEGATIVE COVID-19 (RAN) Negative COVID-19 Clin Com See Note Procedures Date of Service Date of Service: 04/28/22 Progress Note: A&P Assessment and plan (1) Morbid obesity: Status: Acute Assessment and Plan: s/p laparoscopic sleeve gastrectomy and gastropexy Doing well Will check am labs and if OK the patient will be discharged home (2) Depression: Status: Acute (3) Prediabetes: Status: Acute (4) Hyperlipidemia: Status: Acute (5) PCOS (polycystic ovarian syndrome): Status: Acute (6) Steatosis, liver: Status: Acute (7) Liver fibrosis: Status: Acute (8) Cholelithiasis: Status: Acute (9) S/P laparoscopic sleeve gastrectomy: Status: Acute Time Spent With Patient Time: Total time managing care of this patient today ____ minutes. Quality Stroke Does the patient have a stroke diagnosis?: No VTE Prior VTE?: No VTE Risk Level:: Surgical - moderate VTE Device Contraindication: N/A - Device Ordered VTE Drug Contraindication: Treatment Not Indicated
--- NOTE | 2022-04-27 12:35 | PM.DS ---
DS: Providers Provider Date of Service: 04/28/22 Date of admission: 04/27/22 08:01 Primary care physician: DELMI Negron DS: Diagnosis Discharge Diagnosis (1) Morbid obesity: Status: Acute (2) Depression: Status: Acute (3) Prediabetes: Status: Acute (4) Hyperlipidemia: Status: Acute (5) PCOS (polycystic ovarian syndrome): Status: Acute (6) Steatosis, liver: Status: Acute (7) Liver fibrosis: Status: Acute (8) Cholelithiasis: Status: Acute DS: Summary Hospital Course Hospital Course: ADMITTING DIAGNOSIS: morbid obesity, PCOS, pre DM, depression, HLD DISCHARGE DIAGNOSIS: same, s/p laparoscopic sleeve gastrectomy PAST SURGICAL HISTORY: section PROCEDURE: upper endoscopy, laparoscopic sleeve gastrectomy DISCHARGE SUMMARY: History of Present Illness: The patient is a 41 year-old woman with a BMI of 49.1 kg/m2 and associated co-morbidities as described above. The patient had extensive work-up, lost 27.4 lbs preoperatively and was electively scheduled for laparoscopic, possible open sleeve gastrectomy and gastropexy. Risks and complications of the surgery were discussed with the patient in advance, particularly the possibility of , pulmonary embolism, anastomotic leak, bleeding, bowel injury, GERD, cardiac, renal or pulmonary complications. The patient understood all the risks and was in agreement with the surgical plan. Hospital Course: The patient underwent an uneventful laparoscopic sleeve gastrectomy with gastropexy and repair of diaphragmatic hernia on the day of admission. Postoperatively, the patient was transferred to the surgical floor. The patient received IV Acetaminophen and IV dilaudid for pain control. Patient was started on bariatric phase 1 diet POD #0. On postoperative day one, the patient was feeling well without nausea, vomiting, fevers, or tachycardia. The patient had some mild incisional pain and the abdomen was soft. On the morning of postoperative day one, the patient was continued on 1 ounce of water or ice every half hour. During the day, the patient did fairly well, having some incisional pain, but able to ambulate adequately and to tolerate liquids well. Since the patient is doing well, we decided that the patient was ready to be discharged. The patient was given instructions to follow-up with me next week and to call my office for any fever over 101, persistent abdominal pain, nausea, vomiting, GERD, symptoms of DVT such as calf tenderness, or leg swelling, or pulmonary embolism such as chest pain or shortness of breath. The patient was also instructed to drink 40-60 ounces of liquids per day using the 1-ounce cups. The patient had been given prescriptions for Tylenol for pain, Zofran prn for nausea, and pantoprazole and carafate previously. The patient was encouraged to ambulate and use the incentive spirometer. The patient was allowed to shower, but no baths, and encouraged to stay active at home. All of these instructions were given to the patient personally. All questions were answered and the patient understood all instructions, the instructions were also given to the patient in print. Time Spent with Patient Time attestation: Total time managing care of this patient today ____ minutes. Discharge coordination time: Less than 30 minutes Quality: Safe Use of Opioids Does Pt have an Active Cancer Diagnosis on the Problem List?: No Quality: Stroke Does the patient have a stroke diagnosis?: No Physical Exam Vital Signs: Vital Signs: Last Vital Signs Temp 97.1 F 04/27/22 08:16 Pulse 73 04/27/22 08:16 Resp 18 04/27/22 08:16 BP 132/86 04/27/22 08:16 Pulse Ox 99 04/27/22 08:16 O2 Del Method Room Air 04/27/22 08:16 BMI result Body Mass Index 44.6 DS: Data Data Completed and Pending Pending studies at discharge: Pending at discharge 04/27/22 12:07 Surgical [PTH] Routine Labs on day of discharge: Laboratory Results - last 24 hr 04/26/22 04/27/22 15:40 08:06 Urine Test NEGATIVE COVID-19 (RAN) Negative COVID-19 Clin Com See Note Discharge Plan Discharge Anticipated Discharge Date/Time: 04/28/22 10:32 Patient Disposition: Home, Self-Care Discharge Diagnosis: s/p sleeve gastrectomy Referrals: Rahul Avalos PA [Primary Care Provider] - 1 Week Discharge Medications: Continued pantoprazole 40 mg tablet,delayed release (DR/EC) 40 mg PO DAILY Qty: 30 2RF sucralfate 100 mg/mL suspension 10 ml PO BID Qty: 400 2RF ondansetron HCl 4 mg tablet 4 mg PO Q12H Qty: 20 0RF Rx Instructions: Only take one every 12 hours as needed if you have nausea sertraline 25 mg tablet 25 mg PO DAILY Discontinued cholecalciferol (vitamin D3) 125 mcg (5,000 unit) capsule 125 mcg PO DAILY Qty: 30 2RF polyethylene glycol 3350 [Miralax] 17 gram powder in packet 17 g PO DAILY Qty: 14 0RF Rx Instructions: Mix each packet with 8oz of water, Crystal light, or Gatorade zero, or Propel and do 7 packets on 04/25/22 and another 7 packets on 04/26/22 multivitamin Tablet 1 tab PO DAILY Discharge Orders: Discharge Order (Routine); Ordered 04/28/22 Ordered By: Dimitrios Neely Activity on Discharge: No heavy lifting Stand Alone Forms: Patient Portal Discharge page Activity Restrictions/Additional Instructions: No tub baths, sex or returning to work until discussed at first post op appointment. No exercise, alcohol, tobacco or illegal drug use. Continue to use incentive spirometer hourly while awake. Walk in home for 5- 10 minutes every 2 hours during the first week. Continue phase 1 diet today and start phase 2 diet tomorrow morning. Follow all instructions in the bariatric handbook and call with any questions. 1. Please call your doctor or come back to the emergency room should any new symptoms arise. 2. You will receive a courtesy call from [facility] 24-48 hours after discharge. 3. Activity: abstain from alcohol, practice limited stair climbing, no bending, no driving, no exercise, no illicit substances, no lifting, no sex, no tub bath, no work. 4. Diet: continue as discussed with bariatric team.. 5. Dressing Change/Wound Care: Do not change or remove surgical dressings unless they are wet or soiled. 6. Call your doctor if: - Your temperature exceeds 101.5 F - You experience excessive pain or swelling - You have an unexpected reaction to medication - You have excessive bleeding - You experience continued vomiting/nausea - Your incision begins to separate - Your incision shows signs of infection such as increased redness, swelling, excessive pain, heat, or drainage (light blood or clear fluid is normal) 7. General instructions: No lifting greater than 5 lbs for the next 4 weeks[address] driving within 24 hours of taking narcotic pain medications. If you do not move your bowels in the next 2 days, please take milk of magnesia over the counter. Please follow the post op diet and do not advance your diet until you are seen in the office in about 2 weeks. Please walk around your home every hour or two to prevent blood clots from forming in your legs. You do not need to wake from sleeping to walk. Please sleep in a bed or couch to prevent kinking at the hips and knees. Please take your incentive spirometer (your lung jump iron machine presser) home with you and use it for the next few days to prevent pneumonias. You may shower, no hot tubs, baths or swimming pools. Please call the office with any questions or concerns such as increasing abdominal pain, fever, chills, shortness of breath, chest pain, leg pain or swelling, or redness or drainage from your incisions. Do not hesitate to contact the office with any questions at . The patient's medical history has been reviewed and they are considered low risk for post op DVT and therefore DVT prophylaxis is not considered necessary. Travel after surgery was reviewed. The patient has not disclosed any travel plans during the first 30 days after surgery and they have been advised that within the first 30 days after surgery any bus, plane, train or car travel over 2 hours in duration is contraindicated due to the possibility of developing blood clots from immobility. Any travel, needs to include periods of ambulation of 10 minutes in duration every 2 hours. The patient was instructed to discuss any plans for travel during this period with their bariatric surgeon. Care Plan Goals: weight loss Health Concerns: morbid obesity Plan of Treatment: No tub baths, sex or returning to work until discussed at first post op appointment. No exercise, alcohol, tobacco or illegal drug use. Continue to use incentive spirometer hourly while awake. Walk in home for 5- 10 minutes every 2 hours during the first week. Continue phase 1 diet today and start phase 2 diet tomorrow morning. Follow all instructions in the bariatric handbook and call with any questions. 1. Please call your doctor or come back to the emergency room should any new symptoms arise. 2. You will receive a courtesy call from [facility] 24-48 hours after discharge. 3. Activity: abstain from alcohol, practice limited stair climbing, no bending, no driving, no exercise, no illicit substances, no lifting, no sex, no tub bath, no work. 4. Diet: continue as discussed with bariatric team.. 5. Dressing Change/Wound Care: Do not change or remove surgical dressings unless they are wet or soiled. 6. Call your doctor if: - Your temperature exceeds 101.5 F - You experience excessive pain or swelling - You have an unexpected reaction to medication - You have excessive bleeding - You experience continued vomiting/nausea - Your incision begins to separate - Your incision shows signs of infection such as increased redness, swelling, excessive pain, heat, or drainage (light blood or clear fluid is normal) 7. General instructions: No lifting greater than 5 lbs for the next 4 weeks. No driving within 24 hours of taking narcotic pain medications. If you do not move your bowels in the next 2 days, please take milk of magnesia over the counter. Please follow the post op diet and do not advance your diet until you are seen in the office in about 2 weeks. Please walk around your home every hour or two to prevent blood clots from forming in your legs. You do not need to wake from sleeping to walk. Please sleep in a bed or couch to prevent kinking at the hips and knees. Please take your incentive spirometer (your lung jump iron machine presser) home with you and use it for the next few days to prevent pneumonias. You may shower, no hot tubs, baths or swimming pools. Please call the office with any questions or concerns such as increasing abdominal pain, fever, chills, shortness of breath, chest pain, leg pain or swelling, or redness or drainage from your incisions. Do not hesitate to contact the office with any questions at . The patient's medical history has been reviewed and they are considered low risk for post op DVT and therefore DVT prophylaxis is not considered necessary. Travel after surgery was reviewed. The patient has not disclosed any travel plans during the first 30 days after surgery and they have been advised that within the first 30 days after surgery any bus, plane, train or car travel over 2 hours in duration is contraindicated due to the possibility of developing blood clots from immobility. Any travel, needs to include periods of ambulation of 10 minutes in duration every 2 hours. The patient was instructed to discuss any plans for travel during this period with their bariatric surgeon. Assessment: stable, post op sleeve gastrectomy
[2022-04-27] MEDS: Lactated Ringers 1,000 ML 100 ML IVCONT ×2 (14:03→23:15)
[2022-04-27 14:17] LABS: Hematocrit 43.1 % (37.0-47.0); Hemoglobin 14.3 g/dl (12.0-16.0)
[2022-04-27 14:41] LABS: Anion Gap 14 (12-20); Blood Urea Nitrogen 15 mg/dL (9-16); Calcium 8.9 mg/dL (8.4-10.2); Carbon Dioxide 23 mmol/L (22-29); Chloride 106 mmol/L (96-108); Estimated Glomerular Filt Rate > 60; Glucose Random 114 mg/dL (60-115); Potassium 4.6 mmol/L (3.3-5.1); Sodium 138 mmol/L (135-145)
[2022-04-27] MEDS: ceFAZolin Sodium/Dextrose,Iso 2 GM/50 ML PIGGYBACK IV (16:05)
[2022-04-27] MEDS: Acetaminophen 1,000 MG/100 ML PIGGYBACK 16.7 MG IV ×2 (16:44→20:59)
[2022-04-27] MEDS: 0.9 % Sodium Chloride Flush 3 ML SYRINGE IVFLUSH (20:48)
[2022-04-27] MEDS: Famotidine/PF 20 MG/2 ML VIAL IVPUSH (20:48)
[2022-04-27] MEDS: ondansetron HCL 4 MG/2 ML VIAL IVPUSH (23:14)
[2022-04-28] MEDS: Acetaminophen 1,000 MG/100 ML PIGGYBACK 16.7 MG IV (02:52)
[2022-04-28 03:44] VITALS: BP 120/73; PULSE 74; RESP 18; TEMP 36.4; O2SAT 96
[2022-04-28 05:52] LABS: MANUAL DIFF FLAG NO
[2022-04-28 05:55] LABS: Basophils Percent Auto 0.2 % (0-2); Eosinophils Percent Auto 0.1 % (0-4); Hematocrit 40.4 % (37.0-47.0); Hemoglobin 13.5 g/dl (12.0-16.0); Imm Gran Abs Auto 0.03 X10*3/uL (0.00-0.03); Imm Gran Pct Auto 0.3 % (0.0-0.4); Lymphocytes Absolute Auto 1.5 X10*3/uL (1.2-4.9); Lymphocytes Percent Auto 15.1 % (20-40); Mean Corpuscular HGB Conc 33.4 g/dl (31.0-35.0); Mean Corpuscular Hemoglobin 28.5 pg (27.0-33.0); Mean Corpuscular Volume 85.2 fL (80.0-98.0); Mean Platelet Volume 11.5 fL (9.4-12.3); Monocytes Absolute Auto 0.7 X10*3/uL (0.1-1.2); Monocytes Percent Auto 7.1 % (2-11); Neutrophils Absolute Auto 7.7 x10*3/uL (2.0-8.3); Neutrophils Percent Auto 77.2 % (45-73); Platelet Count 203 X10*3/uL (160-400); Red Blood Count 4.74 X10*6/uL (4.20-5.50); Red Cell Distribution Width 12.6 % (11.0-16.0); White Blood Count 9.9 X10*3/uL (4.8-10.8)
[2022-04-28 06:12] LABS: Anion Gap 16 (12-20); Blood Urea Nitrogen 10 mg/dL (9-16); Calcium 8.7 mg/dL (8.4-10.2); Carbon Dioxide 23 mmol/L (22-29); Chloride 106 mmol/L (96-108); Creatinine Clr Calc Pharmacy 145.9; Estimated Glomerular Filt Rate > 60; Glucose Random 92 mg/dL (60-115); Potassium 4.5 mmol/L (3.3-5.1); Sodium 140 mmol/L (135-145)
[2022-04-28] MEDS: ondansetron HCL 4 MG/2 ML VIAL IVPUSH (06:31)
[2022-04-28 07:07] VITALS: BP 120/74; PULSE 57; RESP 18; TEMP 36.7; O2SAT 98
[2022-04-28] MEDS: 0.9 % Sodium Chloride Flush 3 ML SYRINGE IVFLUSH (09:29)
[2022-04-28] MEDS: Famotidine/PF 20 MG/2 ML VIAL IVPUSH (09:30)
--- NOTE | 2022-04-28 09:39 | MHC.CM.PN ---
PT REPORTS SHE LIVES AT HOME WITH FAMILY AND IS INDEPENDENT WITH CARE SHE DENIES USE OF DME OR HOME SERVICES SHE SAYS SHE IS COVID VAX. NOT BOOSTED SHE HAS NEVER COMPLETED A HCP AND DECLINES TO DO ONE TODAY SHE IS ANXIOUS TO DC PCP: [facility] PT WILL DC HOME TODAY WITH NO SERVICES PRESENT TO TRANSPORT
--- NOTE | 2022-04-28 14:07 | HO.POSTANES ---
Post Anesthesia Evaluation Post Anesthesia Evaluation Vital Signs: Vital Signs Temp Pulse Resp BP Pulse Ox O2 Del Method 04/28/22 07:07 98.1 F 57 18 120/74 98 Room Air 04/28/22 03:44 97.6 F 74 18 120/73 96 Room Air Anesthesia: General Endotracheal-GETA Mental Status: Awake Pain Control: Satisfactory Nausea/Vomiting: None Hydration: Adequate Anesthesia-Related Issues: No Anes. Related Issues
== END 2022-04-28 09:58 | disposition home or self-care (01) | DRG 621 ==
LOC: HO.SSSA 12:34 → HO.S3 15:04
PROVIDERS: Nurse Practitioner; Physician Assistant; Physician Assistant Surgical; Admitting Provider Surgery; PCP Physician Assistant Medical; Visit Provider Surgery
PROC: 0DB64Z3 Excision of Stomach, Percutaneous Endoscopic Approach, Vertical (ICD-10-PCS; CPT 43845; principal; 2022-04-27 10:00)
DX: E66.01 Morbid (severe) obesity due to excess calories (principal); E78.5 Hyperlipidemia, unspecified; E28.2 Polycystic ovarian syndrome; Z68.41 Body mass index [BMI] 40.0-44.9, adult; K74.00 Hepatic fibrosis, unspecified; Z68.42 Body mass index [BMI] 45.0-49.9, adult; R73.03 Prediabetes; K76.0 Fatty (change of) liver, not elsewhere classified; K80.20 Calculus of gallbladder without cholecystitis without obstruction; Z20.822 Contact with and (suspected) exposure to COVID-19; Z87.891 Personal history of nicotine dependence; Z88.0 Allergy status to penicillin; Z88.1 Allergy status to other antibiotic agents; Z79.899 Other long term (current) drug therapy
CPT/HCPCS: 36415; 80048; 80053; 80061; 81025; 83036; 83525; 84443; 85014; 85018; 85025; 85610; 85730; 86140; 86850; 86900; 86901; 87635; 88304; 88305; 88307; 88342; A4649; C9088; J0131; J0690; J1100; J1170; J2250; J2370; J2405; J2795; J3010

== ENCOUNTER → 2022-05-04 11:00 | Outpatient (BNVA) | payer OTHER, SELFPAY | PROVIDERS: PCP Physician Assistant Medical; Visit Provider Counselor Mental Health | DX: Z13.89 Encounter for screening for other disorder (principal) ==

== ENCOUNTER → 2022-05-05 08:06 | Outpatient (BNVA) | payer OTHER, SELFPAY | PROVIDERS: PCP Physician Assistant Medical; Visit Provider Physician Assistant Surgical | DX: Z13.89 Encounter for screening for other disorder (principal) ==

== ENCOUNTER → 2022-05-10 17:08 | Outpatient (BNVA) | payer OTHER, SELFPAY | PROVIDERS: PCP Physician Assistant Medical; Visit Provider Counselor Mental Health | DX: F33.0 Major depressive disorder, recurrent, mild (principal); E66.01 Morbid (severe) obesity due to excess calories | CPT/HCPCS: 90853 ==

== ENCOUNTER → 2022-05-19 13:39 | Outpatient (BNVA) | payer OTHER, SELFPAY | PROVIDERS: PCP Physician Assistant Medical; Visit Provider Dietitian, Registered | DX: E66.01 Morbid (severe) obesity due to excess calories (principal); Z68.41 Body mass index [BMI] 40.0-44.9, adult | CPT/HCPCS: 97803 ==

== ENCOUNTER → 2022-05-23 10:00 | Outpatient (BNVA) | payer OTHER, SELFPAY | PROVIDERS: PCP Physician Assistant Medical; Visit Provider Counselor Mental Health | DX: F33.0 Major depressive disorder, recurrent, mild (principal); E66.01 Morbid (severe) obesity due to excess calories ==

== ENCOUNTER → 2022-05-24 17:21 | Outpatient (BNVA) | payer OTHER, SELFPAY | PROVIDERS: PCP Physician Assistant Medical; Visit Provider Counselor Mental Health | DX: F33.0 Major depressive disorder, recurrent, mild (principal); E66.01 Morbid (severe) obesity due to excess calories | CPT/HCPCS: 90853 ==

== ENCOUNTER → 2022-05-25 14:09 | Outpatient (BNVA) | payer OTHER, SELFPAY | PROVIDERS: PCP Physician Assistant Medical; Visit Provider Dietitian, Registered | DX: E66.01 Morbid (severe) obesity due to excess calories (principal); Z68.41 Body mass index [BMI] 40.0-44.9, adult; R73.03 Prediabetes; Z98.84 Bariatric surgery status; Z71.3 Dietary counseling and surveillance | CPT/HCPCS: 97803 ==

== ENCOUNTER → 2022-06-02 08:40 | Outpatient (BNVA) | payer OTHER, SELFPAY | PROVIDERS: PCP Physician Assistant Medical; Visit Provider Surgery | DX: Z13.89 Encounter for screening for other disorder (principal) ==

== ENCOUNTER → 2022-06-06 10:00 | Outpatient (BNVA) | payer OTHER, SELFPAY | PROVIDERS: PCP Physician Assistant Medical; Visit Provider Counselor Mental Health | DX: F33.0 Major depressive disorder, recurrent, mild (principal); E66.01 Morbid (severe) obesity due to excess calories ==

== ENCOUNTER → 2022-06-07 17:12 | Outpatient (BNVA) | payer OTHER, SELFPAY | PROVIDERS: PCP Physician Assistant Medical; Visit Provider Counselor Mental Health | DX: E66.01 Morbid (severe) obesity due to excess calories (principal); F33.0 Major depressive disorder, recurrent, mild; Z98.84 Bariatric surgery status | CPT/HCPCS: 90853 ==

== ENCOUNTER → 2022-06-08 14:46 | Outpatient (BNVA) | payer OTHER, SELFPAY | PROVIDERS: PCP Physician Assistant Medical; Visit Provider Dietitian, Registered | DX: E66.9 Obesity, unspecified (principal); Z68.39 Body mass index [BMI] 39.0-39.9, adult; R73.03 Prediabetes; Z71.3 Dietary counseling and surveillance | CPT/HCPCS: 97803 ==

== ENCOUNTER → 2022-06-20 10:00 | Outpatient (BNVA) | payer OTHER, SELFPAY | PROVIDERS: PCP Physician Assistant Medical; Visit Provider Counselor Mental Health | DX: F33.0 Major depressive disorder, recurrent, mild (principal); E66.01 Morbid (severe) obesity due to excess calories ==

== ENCOUNTER → 2022-06-22 10:17 | Outpatient (BNVA) | payer OTHER, SELFPAY | PROVIDERS: PCP Physician Assistant Medical; Visit Provider Dietitian, Registered | DX: E66.9 Obesity, unspecified (principal); Z68.39 Body mass index [BMI] 39.0-39.9, adult | CPT/HCPCS: 97803 ==

== ENCOUNTER → 2022-07-05 11:00 | Outpatient (BNVA) | payer OTHER, SELFPAY | PROVIDERS: PCP Physician Assistant Medical; Visit Provider Counselor Mental Health | DX: F33.0 Major depressive disorder, recurrent, mild (principal); E66.01 Morbid (severe) obesity due to excess calories ==

== ENCOUNTER → 2022-07-07 10:06 | Outpatient (BNVA) | payer OTHER, SELFPAY | PROVIDERS: PCP Physician Assistant Medical; Visit Provider Surgery ==

== ENCOUNTER → 2022-07-12 19:14 | Outpatient (BNVA) | payer OTHER, SELFPAY | PROVIDERS: PCP Physician Assistant Medical; Visit Provider Counselor Mental Health | DX: E66.01 Morbid (severe) obesity due to excess calories (principal); F33.0 Major depressive disorder, recurrent, mild | CPT/HCPCS: 90853 ==

== ENCOUNTER → 2022-07-18 12:30 | Outpatient (BNVA) | payer OTHER, SELFPAY | PROVIDERS: PCP Physician Assistant Medical; Visit Provider Counselor Mental Health | DX: F33.0 Major depressive disorder, recurrent, mild (principal); E66.01 Morbid (severe) obesity due to excess calories ==

== ENCOUNTER → 2022-07-26 09:47 | Outpatient (BNVA) | payer OTHER, SELFPAY | PROVIDERS: PCP Physician Assistant Medical; Visit Provider Dietitian, Registered | DX: E66.9 Obesity, unspecified (principal); Z68.37 Body mass index [BMI] 37.0-37.9, adult | CPT/HCPCS: 97803 ==

== ENCOUNTER → 2022-07-27 07:58 | Outpatient (BNVA) | payer OTHER, SELFPAY | PROVIDERS: PCP Physician Assistant Medical; Visit Provider Physician Assistant ==

== ENCOUNTER 2022-08-21 14:00 | Outpatient (AMB) | payer OTHER, SELFPAY ==
--- NOTE | 2022-08-21 14:08 | MHC.AMNUTRGE ---
Intake VS Expanded 08/21/22 14:15 Height 5 ft 6 in Weight 226 lb BMI 36.5 Intake Visit Reasons: VIDEO PO LSG 04/27/22 It Risk Advisor Required: No Allergies Penicillins Allergy (Verified 07/07/22 10:12) Hives as Azithromycin Allergy (Mild, Uncoded 07/07/22 10:12) HIVES HPI Nutrition Presentation Details LSG 04/27/22 Preop (04/20/22) 276# weight at 7 Days PO 261# weight at 3 weeks PO 259# Weight at 4wks 255# weight at 6 wks PO 245# weight at 9wks 242# weight at 3 MO 229.4# Current weight 226# Patient saw Dr. Tomas last week for follow-up for gallstones. Plan now is lap imtaiz 08/24 Reason for consult elevated BMI Diet Assmnt Details Went on vacation and wasn't super strict about it had some ice cream and alcohol 8-10am? ?2 scoops 4in1 powder in 8oz almond milk? 11-1 same shake? Scoop protein powder in almond milk= 25g protein protein, and vegetables Hydration: 60 oz total which includes her shakes Exercise: none, we discussed last appt the importance of developing a consistent exercise routine Vitamins: taking a hair, skin, nails supplement - plus bariatric shake Dietary counseling reduction Diagnosis Nutrition problem #1 overweight/obesity As related to (etiology) #1 excess energy intake and physical inactivity As evidenced by (sign/symptom) #1 high BMI Monitoring/Goals Nutrition problem monitoring total energy intake, level of knowledge/skill, total PRO intake, total CHO intake and weight Outcome progress progressing Learning/Education Readiness to learn good Stages of change action Most Recent Diabetes Results: No Data to Display [facility] Medical History Cholelithiasis Depression Hyperlipidemia Morbid obesity PCOS (polycystic ovarian syndrome) Prediabetes Surgical History History of delivery Hx of knee surgery Hx of tonsillectomy Family History Mother Diabetes Heart problem Father No problems noted. Sister Stroke Sister No problems noted. Son No problems noted. Son No problems noted. Social History Household Members: Family Housing: House Are you a primary health care facilities inspector to a significant other at home: Yes (Children) Do you presently have visiting nurse or other home services: No Alcohol intake: current Alcohol intake frequency: does not drink Patient Tobacco Use Status: Former Tobacco user Quit Date: 20 yrs ago Tobacco use type: Cigarette service: No Current occupational status: unemployed Assessment & Plan Assessment & Plan (1) Obesity (BMI 30-39.9): Code(s): E66.9 - Obesity, unspecified Patient Instructions: Emphasized areas for improvement: 1. implement a consistent exercise routine 2. Consistency with nutrition plan 3. hit protein and hydration goals follow up with me 09/19 at 2pm video Telehealth Telehealth Location of provider rendering services: practice address Location of patient: address on file Patient Identification confirmed using: Name, : Yes Telehealth method: video Patient verbally consented to treatment: Yes Patient verbally consented to billing insurance company: Yes Patient informed of any privacy concerns related to visit: Yes Minutes spent on Phone/Video with Pt.: 25 Coding Level of Care Code Nutr Indiv Subseq (95259) Diagnoses Obesity (BMI 30-39.9) E66.9 Time Spent (min) 25
[2022-08-21 14:15] VITALS: BMI 36.5
== END 2022-08-21 15:01 | disposition home or self-care (01) ==
LOC: HO.HBS 14:50
PROVIDERS: PCP Physician Assistant Medical; Visit Provider Dietitian, Registered
DX: E66.9 Obesity, unspecified (principal)

== ENCOUNTER → 2022-08-21 14:00 | Outpatient (BNVA) | payer OTHER, SELFPAY | PROVIDERS: PCP Physician Assistant Medical; Visit Provider Dietitian, Registered | DX: E66.9 Obesity, unspecified (principal); R73.03 Prediabetes; Z71.3 Dietary counseling and surveillance; Z98.84 Bariatric surgery status | CPT/HCPCS: 97803 ==

== ENCOUNTER 2022-08-22 10:00 | Outpatient (AMB) | payer OTHER, SELFPAY ==
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
== END 2022-08-24 11:55 | disposition home or self-care (01) ==
LOC: HO.HBST 10:36
PROVIDERS: PCP Physician Assistant Medical; Visit Provider Counselor Mental Health
DX: F33.0 Major depressive disorder, recurrent, mild (principal); E66.01 Morbid (severe) obesity due to excess calories
CPT/HCPCS: 90832

== ENCOUNTER → 2022-08-22 10:00 | Outpatient (BNVA) | payer OTHER, SELFPAY | PROVIDERS: PCP Physician Assistant Medical; Visit Provider Counselor Mental Health | DX: F33.0 Major depressive disorder, recurrent, mild (principal); E66.01 Morbid (severe) obesity due to excess calories ==

== ENCOUNTER 2022-08-24 06:11 | Day surgery (SDC) | payer OTHER, SELFPAY ==
--- NOTE | 2022-08-23 12:09 | P.CONAN_ITS ---
Documented by User: Jenna Whipple NP 08/23/22 12:10 HPI - Anesthesia Eval Consult details Narrative: 42yo F for Cholecystectomy Laparoscopic,poss open, PMFSH Active Problems Active Problems: All Active Problems (Updated 06/02/22 @ 08:53 by Avtar Tomas MD) Cholelithiasis (Acute) S/P laparoscopic sleeve gastrectomy (Acute) Liver fibrosis (Acute) Steatosis, liver (Acute) Major depressive disorder, recurrent, mild (Acute) Vitamin D deficiency (Acute) PCOS (polycystic ovarian syndrome) (Acute) Hyperlipidemia (Acute) Prediabetes (Acute) Depression (Acute) Morbid obesity (Acute) Past Medical History Medical History Cholelithiasis Depression Hyperlipidemia Morbid obesity PCOS (polycystic ovarian syndrome) Prediabetes Family History Family History Mother Diabetes Heart problem Father No problems noted. Sister Stroke Sister No problems noted. Son No problems noted. Son No problems noted. Family history of problems with anesthesia: No Surgical History Surgical History (Updated 08/24/22 @ 06:48 by Alayna Ramires RN) History of delivery Hx of gastric bypass Hx of knee surgery Hx of tonsillectomy History of Problems with Anesthesia: No Social History Social History Household Members: Family Housing: House Are you a primary healthcare representative to a significant other at home: Yes (Children) Do you presently have visiting nurse or other home services: No Alcohol intake: current Alcohol intake frequency: does not drink Patient Tobacco Use Status: Former Tobacco user Quit Date: 20 yrs ago Tobacco use type: Cigarette Are you DNR?: No Advance Directives: No Advance Directives Information Provided: Yes Nutrition Risks: No Nutritional Risk FDLMP: 08/16/22 service: No Current occupational status: unemployed Meds Allergies Allergy/AdvReac Type Severity Reaction Status Date / Time Penicillins Allergy Hives as Verified 08/24/22 06:46 infant Azithromycin Allergy Mild HIVES Uncoded 08/24/22 06:46 Home Medications Medication Instructions Recorded Confirmed Last Taken Type sertraline 25 mg tablet 25 mg PO DAILY 01/19/22 08/24/22 08/24/22 History Exam Exam Date and Time: August 23, 2022 1209 Pertinent Lab Results Pertinent Lab Results: Laboratory Tests 04/28/22 04/28/22 04:56 04:56 WBC 9.9 Hgb 13.5 Hct 40.4 Plt Count 203 Sodium 140 Potassium 4.5 Chloride 106 Carbon Dioxide 23 BUN 10 Creatinine 0.68 Assessment and Plan Assessment Anesthesia Assessment: Chart Reviewed Final Anesthetic Review Family History of Problems with Anesthesia: No History of Problems with Anesthesia: No Documented by User: Cheng Pena MD 08/24/22 07:55 PMFSH Past Medical History Medical History Cholelithiasis Depression Hyperlipidemia Morbid obesity PCOS (polycystic ovarian syndrome) Prediabetes Family History Family History Mother Diabetes Heart problem Father No problems noted. Sister Stroke Sister No problems noted. Son No problems noted. Son No problems noted. Surgical History Surgical History (Updated 08/24/22 @ 06:48 by Alayna Ramires RN) History of delivery Hx of gastric bypass Hx of knee surgery Hx of tonsillectomy Social History Social History Household Members: Family Housing: House Are you a primary healthcare representative to a significant other at home: Yes (Children) Do you presently have visiting nurse or other home services: No Alcohol intake: current Alcohol intake frequency: does not drink Patient Tobacco Use Status: Former Tobacco user Quit Date: 20 yrs ago Tobacco use type: Cigarette Are you DNR?: No Advance Directives: No Advance Directives Information Provided: Yes Nutrition Risks: No Nutritional Risk FDLMP: 08/16/22 service: No Current occupational status: unemployed Meds Allergies Allergy/AdvReac Type Severity Reaction Status Date / Time Penicillins Allergy Hives as Verified 08/24/22 06:46 infant Azithromycin Allergy Mild HIVES Uncoded 08/24/22 06:46 Home Medications Medication Instructions Recorded Confirmed Last Taken Type sertraline 25 mg tablet 25 mg PO DAILY 01/19/22 08/24/22 08/24/22 History Exam Airway Mallampati Class: I TM Dist: >3cm Neck ROM: Full Heart: ok Lungs: ok Assessment and Plan Assessment Anesthesia Assessment: Anesthesia Plan Discussed Final Anesthetic Review NPO: Yes ASA Class: II Final Preanesthetic Review: No Changes in Pt Med Stat, Meds/Allgs Chart Reviewed, Consent Obtained/Reviewed and Anes Risks/Benef Reviewed Patient Risk: Intermediate Procedure Risk: Intermediate Anesthetic Plan Anesthetic Plan: GA and Agree w/ Assess. and Plan Disposition: Standard PACU
[2022-08-24] VITALS (9 sets, daily range): BP systolic 112–137; BP diastolic 49–83; PULSE 44–69; RESP 14–18; TEMP 36.1–36.8; O2SAT 97–99; BMI 38.1
[2022-08-24] MEDS: Lactated Ringers 1,000 ML 100 ML IVCONT (06:29)
--- NOTE | 2022-08-24 06:39 | MHC.SHP ---
Pre-Procedural Eval Section A Date of Service: 08/24/22 The patient is an INPATIENT: No The History & Physical has been completed within 30 days and I have reviewed it.: Yes Section B Chief Complaint: Calculus of gallbladder without cholecystitis with Allergies: Allergies Allergy/AdvReac Type Severity Reaction Status Date / Time Penicillins Allergy Hives as Verified 07/07/22 10:12 infant Azithromycin Allergy Mild HIVES Uncoded 07/07/22 10:12 Plan I have reviewed the history and physical and performed a pertinent physical examination on my patient. No changes have occurred unless specified. Time Spent With Patient Time: Total time managing care of this patient today ____ minutes.
--- NOTE | 2022-08-24 06:43 | W.PM.OPN ---
Operative Note Operative Note Date of Service: 08/24/22 Narrative: Preop diagnosis: [CC, biliary colic] Postop diagnosis: [Same, right upper quadrant adhesions to gallbladder] Procedure: [Laparoscopic cholecystectomy with lysis of adhesions] Surgeon: Avtar Tomas MD Assist: [none] Anesthesia: [GET, local: Marcaine, 0.5%] Estimated blood loss: [10cc] Specimen: [Gallbladder with contents] Intraoperative findings: [Adhesions of the omentum and duodenum to the gallbladder were noted requiring a lysis of adhesions that took 27 minutes; cystic duct was 4-5 mm and the cystic artery was 3 mm. Critical view demonstrated] Indications: [The patient is a 42-year-old woman status post laparoscopic sleeve gastrectomy with new onset of abdominal pain, new onset of gallstones and symptoms consistent with biliary colic. I explained the symptoms of biliary colic and recommended laparoscopic cholecystectomy. I reviewed the option of continued observation and 2nd opinion which was declined. I also reviewed the inherent risks to surgery which include, but are not limited to: Bleeding that could require another operation or blood transfusion, the need for open surgery, the unlikely but possible issue of bile leak that could require an ERCP, the risk of retained common duct stones that could require an ERCP, the risk of common bile duct injury which would require transfer to a larger institution for another operation. Patient seemed to understand her options, declined a financial services counselor or 2nd opinion and wants to proceed. Instructions regarding diet and activity reviewed and apparently understood. The patient is advised to avoid rich fatty foods postoperatively to avoid GI distress/diarrhea and advised to not lift more than 20 lb for medical reasons to minimize the risk of hernia postoperatively. I recommended that she discuss these restrictions with her employer and that she is not disabled during this time frame but can perform light duty. The patient's questions seemed to be satisfactorily answered.] Procedure: [The patient was identified in preoperative holding and again in the operating room and placed supine on the table. An appropriate time-out was performed and preemptive local used at all trocar insertion sites. I began at the patient's supraumbilical midline and placed a Veress needle through a transverse supraumbilical incision. An appropriate drop test was performed. The needle was connected to high flow and opening pressures were 6 mmHg. A pneumoperitoneum of 15 mmHg was then obtained using carbon dioxide. The Veress needle was then removed and I accessed the patient's abdomen through the supraumbilical midline incision using a 5 mm Optiview trocar and 30 degree/5 mm laparoscopic without incident. Next a a 5 mm epigastric and two 5 mm right subcostal ports were placed with preemptive analgesia under direct laparoscopic vision without incident and the supraumbilical trocar upsized to a 12 mm trocar under direct laparoscopic vision. The gallbladder was clearly identified and grasped by its fundus. There were adhesions from the omentum to the gallbladder all the way onto the liver that required a lysis of adhesions which took 27 minutes. Next, the gallbladder was retracted cranially and anteriorly and dissection began in the lateral cystic triangle. The cystic duct was identified at its junction on the gallbladder and dissection carried medially, then circumferentially using the [place] dissector and hook. The cystic artery was then carefully identified and circumferentially dissected. Once dissection of both structures was complete and the critical view of safety demonstrated, the duct and artery were double clipped proximally and once distally and sharply divided. Electrocautery was used to remove the gallbladder from its fossa on the liver. Liver bed was inspected for hemostasis and the clips were noted to be on the respective structures. The gallbladder was placed in an Endo-Catch bag and delivered through the umbilicus under direct laparoscopic vision. The abdomen was again inspected with the laparoscoped and a abdomen deflated to assess for hemostasis. The patient was returned to neutral position, the abdomen deflated and the fascia of the supraumbilical incision closed with interrupted Vicryl sutures. Skin was closed with 4-0 Monocryl subcuticular sutures. Mastisol and Steri-Strips were applied followed by Band-Aids. The patient tolerated the procedure well and was extubated recovered in stable condition. All sponge instrument counts were correct. At the patient's request I called her , Vasiliy at [phone] and apprise him/her of the operation and post-op plan, activity restrictions, pain management & bowel regime. Questions seemed to be satisfactorily answered.]
[2022-08-24 07:02] LABS: UPreg QC Valid YES; Urine Pregnancy NEGATIVE (NEGATIVE)
[2022-08-24] MEDS: fentaNYL citrate/PF 100 MCG/2 ML VIAL 50 MCG IVPUSH (09:30)
[2022-08-24] MEDS: Acetaminophen 325 MG TABLET 650 MG PO (09:30)
[2022-08-24] MEDS: oxyCODONE HCl Immed Release 5 MG TABLET 10 MG PO (09:31)
== END 2022-08-24 10:24 | disposition home or self-care (01) ==
PROVIDERS: Nurse Practitioner; PCP Physician Assistant Medical; Visit Provider Surgery
PROC: 0FT44ZZ Resection of Gallbladder, Percutaneous Endoscopic Approach (ICD-10-PCS; CPT 47562; principal; 2022-08-24 07:30)
DX: K80.10 Calculus of gallbladder with chronic cholecystitis without obstruction (principal); K66.0 Peritoneal adhesions (postprocedural) (postinfection); Z88.0 Allergy status to penicillin; Z88.1 Allergy status to other antibiotic agents
CPT/HCPCS: 47562; 81025; 88304; J0461; J1956; J2405; J2795; J3010

== ENCOUNTER → 2022-08-24 06:11 | Outpatient (BNV) | payer OTHER, SELFPAY | PROVIDERS: PCP Physician Assistant Medical; Visit Provider Surgery | DX: K80.10 Calculus of gallbladder with chronic cholecystitis without obstruction (principal); K80.20 Calculus of gallbladder without cholecystitis without obstruction | CPT/HCPCS: 47562 ==

== ENCOUNTER 2022-09-04 12:24 | Outpatient (AMB) | payer OTHER, SELFPAY ==
--- NOTE | 2022-09-04 12:30 | A.OFFVIS_ITS ---
Intake Vital Signs 09/04/22 12:35 Height 5 ft 6 in Weight 226 lb 10.163 oz BMI 36.6 BP 119/71 Blood Pressure Location Lt brachial Position Sitting Pulse 62 Intake Visit Reasons: S/P lap imtiaz Intake Note: Patient is seen in office for post op assessment post laparoscopidc cholecystectomy. Patient c/o:denies any concerns at the time of visit, healing well. Real Estate Closer Required: No Convertible Sofa Bedspring Tester: Convertible Sofa Bedspring Tester offered & declined Accompanied by: Self / Same As Patient Allergies Penicillins Allergy (Verified 08/24/22 06:46) Hives as infant Azithromycin Allergy (Mild, Uncoded 08/24/22 06:46) HIVES Medication List - Last Reconciled 09/04/22 by Avtar Tomas MD sertraline 25 mg PO DAILY HPI HPI Comments History of Present Illness Details The patient returns for follow-up after an uneventful laparoscopic cholecystectomy for chronic calculous cholecystitis. She reports that she is doing well, tolerating a diet. There was transient constipation but her bowels are moving and there was no fevers, chills or sweats. She denies interval change otherwise. [facility] Medical History (Updated 09/04/22 @ 12:45 by Avtar Tomas MD) Cholelithiasis Depression Hyperlipidemia Morbid obesity PCOS (polycystic ovarian syndrome) Prediabetes Surgical History History of delivery Hx of gastric bypass Hx of knee surgery Hx of tonsillectomy Family History Mother Diabetes Heart problem Father No problems noted. Sister Stroke Sister No problems noted. Son No problems noted. Son No problems noted. Social History Household Members: Family Housing: House Are you a primary home care scheduler to a significant other at home: Yes (Children) Do you presently have visiting nurse or other home services: No Alcohol intake: current Alcohol intake frequency: does not drink Patient Tobacco Use Status: Former Tobacco user Quit Date: 20 yrs ago Tobacco use type: Cigarette service: No Current occupational status: unemployed Physical Exam Vital Signs: Last Vital Signs Pulse 62 09/04/22 12:35 BP 119/71 09/04/22 12:35 BMI result Body Mass Index 36.6 On exam, the patient is nontoxic and anicteric Patient is in no respiratory distress Abdomen is soft with appropriate incisional healing ridge is in no erythema, pur ulence, tenderness or evidence of hernia Results Reviewed Results Reviewed: Pathology confirming chronic calculous cholecystitis was reviewed. Patient is reassured there was no malignancy. Assessment & Plan Assessment & Plan (1) S/P laparoscopic cholecystectomy: Code(s): Z90.49 - Acquired absence of other specified parts of digestive tract (2) S/P laparoscopic sleeve gastrectomy: Code(s): Z98.84 - Bariatric surgery status (3) Cholelithiasis: Code(s): K80.20 - Calculus of gallbladder without cholecystitis without obstruction (4) Chronic calculous cholecystitis: Code(s): K80.10 - Calculus of gallbladder with chronic cholecystitis without obstruction Patient Instructions: Instructions regarding diet and activity reviewed and apparently understood. Patient is otherwise discharged from my care and will follow-up on a p.r.n. ba sis. Coding Level of Care Code Global (64112) Diagnoses S/P laparoscopic cholecystectomy Z90.49 S/P laparoscopic sleeve gastrectomy Z98.84 Cholelithiasis K80.20 Chronic calculous cholecystitis K80.10
[2022-09-04 12:35] VITALS: BP 119/71; PULSE 62; BMI 36.6
== END 2022-09-04 13:16 | disposition home or self-care (01) ==
PROVIDERS: PCP Physician Assistant Medical; Visit Provider Surgery
DX: Z90.49 Acquired absence of other specified parts of digestive tract (principal); Z98.84 Bariatric surgery status; K80.20 Calculus of gallbladder without cholecystitis without obstruction; K80.10 Calculus of gallbladder with chronic cholecystitis without obstruction
CPT/HCPCS: 99024

== ENCOUNTER → 2022-09-04 12:24 | Outpatient (BNVA) | payer OTHER, SELFPAY | PROVIDERS: PCP Physician Assistant Medical; Visit Provider Surgery ==

== ENCOUNTER 2022-09-19 14:08 | Outpatient (AMB) | payer OTHER, SELFPAY ==
--- NOTE | 2022-09-19 14:01 | MHC.AMNUTRGE ---
Intake VS Expanded 09/19/22 14:08 Height 5 ft 6 in Weight 221 lb BMI 35.7 Intake Visit Reasons: VIDEO PO LSG 04/27/22 Associate Director Finance Required: No Allergies Penicillins Allergy (Verified 08/24/22 06:46) Hives as Azithromycin Allergy (Mild, Uncoded 08/24/22 06:46) HIVES HPI Nutrition Presentation Details LSG 04/27/22 Preop (04/20/22) 276# weight at 7 Days PO 261# weight at 3 weeks PO 259# Weight at 4wks 255# weight at 6 wks PO 245# weight at 9wks 242# weight at 3 MO 229.4# Current weight 5MO PO 221# s/p lap imtiaz 08/24 Reason for consult elevated BMI Diet Assmnt Details Is feeling good s/p lap imtiaz 8-10am? ?2 scoops 4in1 powder in 8oz almond milk? 11-1 same shake? Scoop protein powder in almond milk= 25g protein protein, and vegetables Hydration: 60 oz total which includes her shakes Exercise: none, we discussed last appt the importance of developing a consistent exercise routine got a new cord for her elliptical now and it is working. sara hasn't used it yet. Vitamins: taking a hair, skin, nails supplement - plus bariatric shake Dietary counseling reduction Diagnosis Nutrition problem #1 overweight/obesity As related to (etiology) #1 excess energy intake and physical inactivity As evidenced by (sign/symptom) #1 high BMI Monitoring/Goals Nutrition problem monitoring total energy intake, level of knowledge/skill, total PRO intake, total CHO intake and weight Outcome progress progressing Learning/Education Readiness to learn good Stages of change action Most Recent Diabetes Results: No Data to Display [facility] Medical History (Updated 09/04/22 @ 12:45 by Avtar Tomas MD) Cholelithiasis Depression Hyperlipidemia Morbid obesity PCOS (polycystic ovarian syndrome) Prediabetes Surgical History History of delivery Hx of gastric bypass Hx of knee surgery Hx of tonsillectomy Family History Mother Diabetes Heart problem Father No problems noted. Sister Stroke Sister No problems noted. Son No problems noted. Son No problems noted. Social History Household Members: Family Housing: House Are you a primary home care administrator to a significant other at home: Yes (Children) Do you presently have visiting nurse or other home services: No Alcohol intake: current Alcohol intake frequency: does not drink Patient Tobacco Use Status: Former Tobacco user Quit Date: 20 yrs ago Tobacco use type: Cigarette service: No Current occupational status: unemployed Assessment & Plan Assessment & Plan (1) Obesity (BMI 30-39.9): Code(s): E66.9 - Obesity, unspecified Patient Instructions: continue with her nutrition plan - she is happy with it as is. Encouraged exercise and she will message me when she gets on her elliptical tonight for accountability. PA in oct, resume appt with me late oct Telehealth Telehealth Location of provider rendering services: practice address Location of patient: address on file Patient Identification confirmed using: Name, : Yes Telehealth method: video Patient verbally consented to treatment: Yes Patient verbally consented to billing insurance company: Yes Patient informed of any privacy concerns related to visit: Yes Minutes spent on Phone/Video with Pt.: 20 Coding Level of Care Code Nutr Indiv Subseq (32415) Diagnoses Obesity (BMI 30-39.9) E66.9 Time Spent (min) 20
[2022-09-19 14:08] VITALS: BMI 35.7
== END 2022-09-19 14:21 | disposition home or self-care (01) ==
LOC: HO.HBS 14:08
PROVIDERS: PCP Physician Assistant Medical; Visit Provider Dietitian, Registered
DX: E66.9 Obesity, unspecified (principal)

== ENCOUNTER → 2022-09-19 14:08 | Outpatient (BNVA) | payer OTHER, SELFPAY | PROVIDERS: PCP Physician Assistant Medical; Visit Provider Dietitian, Registered | DX: E66.9 Obesity, unspecified (principal); Z68.35 Body mass index [BMI] 35.0-35.9, adult; Z90.49 Acquired absence of other specified parts of digestive tract; Z71.3 Dietary counseling and surveillance | CPT/HCPCS: 97803 ==

== ENCOUNTER → 2022-10-27 10:17 | Outpatient (BNVA) | payer OTHER, SELFPAY | PROVIDERS: PCP Physician Assistant Medical; Visit Provider Physician Assistant Surgical ==

== ENCOUNTER → 2022-12-08 10:25 | Outpatient (BNVA) | payer OTHER, SELFPAY | PROVIDERS: PCP Physician Assistant Medical; Visit Provider Dietitian, Registered | DX: E66.09 Other obesity due to excess calories (principal); Z68.35 Body mass index [BMI] 35.0-35.9, adult; Z98.84 Bariatric surgery status | CPT/HCPCS: 97803 ==